=== PATIENT | male | born 1990 | race Caucasian/White ===

== ENCOUNTER → 2019-09-10 | Outpatient (CLI) | payer OTHER ==
--- NOTE | 2019-09-10 09:25 | Diagnostic Imaging Report ---
PROCEDURE: CT abdomen and pelvis without contrast. TECHNIQUE: Multiple contiguous axial images were obtained through the abdomen and pelvis without the use of intravenous contrast. Auto Exposure Controls were utilized during the CT exam to meet ALARA standards for radiation dose reduction. INDICATION: Microhematuria with bilateral back pain. No prior studies are available for comparison. The lung bases are clear. Liver is unremarkable. Gallbladder is surgically absent. No biliary ductal dilatation is seen. The pancreas and spleen are unremarkable. No adrenal mass is detected. No definite renal calculi or hydronephrosis is detected. No ureteral or bladder calculi are seen. The aorta is normal caliber. The small and large bowel loops are normal caliber. There is no obstruction. No free fluid or fluid collection is seen. Prostate is unremarkable. The bony structures are nonacute. IMPRESSION: Unremarkable noncontrast CT of abdomen and pelvis. There is no evidence of urinary tract calculi or obstruction. Dictated by: Dictated on workstation # [id number]
== END ==
LOC: RAD 08:55
PROVIDERS: ATTEND Urology
DX: M54.9 Dorsalgia, unspecified (principal); R31.29 Other microscopic hematuria
CPT/HCPCS: 74176

== ENCOUNTER 2019-10-14 16:12 | Outpatient (RCR) | payer OTHER | END 2020-01-12 | disposition home or self-care (01) | LOC: LAB 16:12 | PROVIDERS: ATTEND Urology | DX: N46.9 Male infertility, unspecified (principal) | CPT/HCPCS: 89320 ==